=== PATIENT | female | born 1955 | race Two or more races ===

== ENCOUNTER 2023-09-29 11:43 | Outpatient (CLI) | payer OTHER | END 2023-09-29 11:45 | disposition home or self-care (01) | LOC: RAD 11:43 | PROVIDERS: ATTEND Orthopaedic Surgery | DX: M25.561 Pain in right knee (principal); M25.562 Pain in left knee ==

== ENCOUNTER 2023-11-23 08:15 | Inpatient (IN) | payer OTHER ==
[~2023-11-23] VITALS: Ht 147.3 cm; Wt 68.0 kg
[2023-11-23] MEDS ORDERED: TENORMIN50 M1 PO (10:15)
[2023-11-23] MEDS ORDERED: COZAAR100 MG PO (10:15)
[2023-11-23] MEDS ORDERED: PREVACID30 MG PO (10:16)
[2023-11-23] MEDS ORDERED: SYNTHROID137 MCG PO (10:16)
[2023-11-23] MEDS ORDERED: RESTORIL30 M1 PO (10:16)
[2023-11-23] MEDS ORDERED: PEPCID40 MG PO (10:17)
[2023-11-23 12:03] LABS: URINE APPEARANCE Clear; URINE BILIRRUBIN Negative (NEGATIVE); URINE BLOOD Negative; URINE COLOR Yellow; URINE GLUCOSE Negative (NEGATIVE); URINE LEUKOCYTE Moderate; URINE NITRATE Negative; URINE PROTEIN Negative (NEGATIVE); URINE UROBILINOGEN 0.2 E.U./dl
[2023-11-23 12:04] LABS: URINE BACTERIA 696.7 uL (0.0-1933); URINE EPITHELIAL CELLS 53.4 uL (0.0-38.8); URINE RBC 4.4 uL (0.0-20.8); URINE WBC 151.3 uL (0.0-23.2)
[2023-11-23 12:31] LABS: HEMATOCRIT 37.7 % (36.0-45.00); HEMOGLOBIN 12.6 g/dL (12.0-15.00); MEAN CELL VOLUME 93.5 fL (80.00-100.00); MEAN CORPUSCULAR HEMOGLOBIN 31.2 pg (27.00-32.0); MEAN CORPUSCULAR HGB CONC 33.4 g/dl (32.0-36.0); PLATELET COUNT 253 K/uL (150-450); RED BLOOD COUNT 4.03 M/uL (4.00-6.00); RED CELL DISTRIBUTION WIDTH 13.3 % (11.5-14.5)
[2023-11-23 12:54] LABS: INR 0.96; PARTIAL THROMBOPLASTIN TIME 28.5 SECONDS (22.0-34.0); PROTHROMBIN TIME 10.1 SECONDS (9.0-11.5)
[2023-11-23 13:37] LABS: ALBUMIN 3.8 gm/dL (3.4-5.0); BILIRUBIN TOTAL 0.51 mg/dL (0.3-1.2); CALCIUM 9.5 mg/dL (8.5-10.1); CREATININE SERUM 1.13 mg/dL (0.55-1.02); GFR 48.03; GLOBULINA 4.4 G/DL (2.4-3.5); POTASSIUM 4.2 mEq/L (3.5-5.1); TOTAL PROTEIN 8.2 gm/dL (6.4-8.2)
[2023-11-30] MEDS ORDERED: CEFAZOLIN SODIUM 1,000 MG VIAL ONE ×2 (11:14→16:10)
[2023-11-30] MEDS ORDERED: TRANEXAMIC ACID 100MG/1ML (1000MG) AMPUL IV ONE ×3 (11:15→12:45)
[2023-11-30] MEDS ORDERED: KETOROLAC TROMETHAMINE 60 MG VIAL IM ONE ×2 (11:17→12:45)
[2023-11-30] MEDS ORDERED: LIDOCAINE HCL 1%/Epi 20ML VIAL IJ ONE ×2 (11:18→12:45)
[2023-11-30] MEDS ORDERED: VANCOMYCIN HCL 1,000 MG VIAL ONE (11:18)
[2023-11-30] MEDS ORDERED: ONDANSETRON HCL 2 MG/ML VIAL IV PRN (12:30)
[2023-11-30] MEDS ORDERED: VANCOMYCIN HCL 1,000 MG VIAL IR ONE (12:45)
[2023-11-30] MEDS ORDERED: BUPIVACAINE HCL 30 ML VIAL IJ ONE (12:45)
[2023-11-30] MEDS ORDERED: CEFAZOLIN SODIUM 1,000 MG VIAL IV ONE (12:45)
[2023-11-30] MEDS ORDERED: MORPHINE SULFATE 4 MG/ML VIAL IV ONE (14:15)
[2023-11-30] MEDS ORDERED: MORPHINE SULFATE 4 MG/ML CARTRIDGE IV SCH (18:00)
[2023-11-30] MEDS ORDERED: ACETAMINOPHEN 500 MG GEL..CAP PO SCH (18:00)
[2023-11-30] MEDS ORDERED: CEFAZOLIN SODIUM 1,000 MG VIAL IV SCH (18:00)
[2023-11-30] MEDS ORDERED: ORPHENADRINE CITRATE 100 MG TABLET PO SCH (21:00)
[2023-11-30] MEDS ORDERED: GABAPENTIN 100 MG CAPSULE PO SCH (21:00)
[2023-12-01 07:47] LABS: HEMATOCRIT 29.7 % (36.0-45.00); MEAN CELL VOLUME 95.4 fL (80.00-100.00); MEAN CORPUSCULAR HGB CONC 33.3 g/dl (32.0-36.0); PLATELET COUNT 193 K/uL (150-450); RED BLOOD COUNT 3.11 M/uL (4.00-6.00); RED CELL DISTRIBUTION WIDTH 13.5 % (11.5-14.5)
[2023-12-01 07:54] LABS: MEAN CORPUSCULAR HEMOGLOBIN 31.8 pg (27.00-32.0)
[2023-12-01 07:55] LABS: HEMOGLOBIN 9.9 g/dL (12.0-15.00)
[2023-12-01] MEDS ORDERED: ENOXAPARIN SODIUM 30 MG/0.3 ML SYRINGE SUBCUTANEO SCH (09:00)
[2023-12-01] MEDS ORDERED: Cyanocobalamin/Mecobalamin 1 TAB.SL SL SCH (12:15)
[2023-12-01] MEDS ORDERED: SOD FERRIC GLUC COMPLX/SUCROSE 62.5 MG/5 ML AMPUL IV SCH (12:15)
[2023-12-01] MEDS ORDERED: VITAMIN B COMPLEX 1 EACH PO SCH (12:15)
[2023-12-01] MEDS ORDERED: IRON FUM,PS/FOLIC ACID/VITC/B3 1 CAP CAPSULE PO SCH (12:15)
[2023-12-01 14:11] LABS: ALBUMIN 2.8 gm/dL (3.4-5.0); BILIRUBIN TOTAL 0.46 mg/dL (0.3-1.2); CALCIUM 7.9 mg/dL (8.5-10.1); CREATININE SERUM 1.5 mg/dL (0.55-1.02); GFR 34.64; GLOBULINA 3.8 G/DL (2.4-3.5); POTASSIUM 3.91 mEq/L (3.5-5.1); TOTAL PROTEIN 6.6 gm/dL (6.4-8.2)
[2023-12-01] MEDS ORDERED: CLONAZEPAM 0.5 MG TABLET PO PRN (18:15)
[2023-12-01] MEDS ORDERED: ENALAPRILAT DIHYDRATE 1.25 MG/ML VIAL IV PRN (20:45)
[2023-12-02] MEDS ORDERED: LEVOTHYROXINE SODIUM 137 MCG TABLET PO SCH (06:00)
[2023-12-02 06:19] LABS: HEMATOCRIT 27.4 % (36.0-45.00); HEMOGLOBIN 9.3 g/dL (12.0-15.00); MEAN CELL VOLUME 93.5 fL (80.00-100.00); MEAN CORPUSCULAR HEMOGLOBIN 31.8 pg (27.00-32.0); PLATELET COUNT 177 K/uL (150-450); RED BLOOD COUNT 2.93 M/uL (4.00-6.00); RED CELL DISTRIBUTION WIDTH 13.2 % (11.5-14.5)
[2023-12-02] MEDS ORDERED: LOSARTAN POTASSIUM 100 MG TABLET PO SCH (09:00)
[2023-12-02] MEDS ORDERED: ATENOLOL 50 MG TABLET PO SCH (09:00)
== END 2023-12-02 14:10 | DRG 467 ==
LOC: SURH 11-30 08:15 → O/R 11-30 08:25 → SURG 11-30 08:25 → SURH 11-30 12:30 → SURG 11-30 14:34
PROVIDERS: ADMIT Orthopaedic Surgery; ATTEND Orthopaedic Surgery
PROC: 0SRC0J9 Replacement of Right Knee Joint with Synthetic Substitute, Cemented, Open Approach (ICD-10-PCS; 2023-11-30)
PROC: 0SPC0JZ Removal of Synthetic Substitute from Right Knee Joint, Open Approach (ICD-10-PCS; principal; 2023-11-30 12:30)
DX: T84.84XA Pain due to internal orthopedic prosthetic devices, implants and grafts, initial encounter (principal); D62 Acute posthemorrhagic anemia; M86.051 Acute hematogenous osteomyelitis, right femur; T84.023A Instability of internal left knee prosthesis, initial encounter; M17.11 Unilateral primary osteoarthritis, right knee; M85.661 Other cyst of bone, right lower leg; E03.9 Hypothyroidism, unspecified; I10 Essential (primary) hypertension